=== PATIENT | male | born 1950 | race Caucasian/White ===

== ENCOUNTER 2019-07-25 08:24 | Day surgery (SDC) | payer OTHER ==
[2019-07-25 09:05] LABS: Protime INR 1.04
[2019-07-25 09:20] VITALS: BMI 27.5
--- NOTE | 2019-07-25 11:35 | RAD REPORT ---
EXAM DESCRIPTION: RAD - Myelography Lumbar - 07/25/2019 11:25 am CLINICAL HISTORY: PAIN Radiculopathy COMPARISON: Sacroiliac Jts 3/+ Views dated 03/03/2019; Lumbar Spine 3 Views dated 03/03/2019 TECHNIQUE: The procedure, risks and alternatives to the procedure were discussed with the patient in detail. After answering all questions, both oral and written consent were obtained. Time-out procedu re was performed. The patient was placed in an oblique prone position on the fluoroscopic table. The skin of the lower back was prepped and draped in the usual sterile fashion. After anesthetizing the skin and deeper sof t tissues with 1% lidocaine, a 22 gauge needle was advanced into the thecal sac at the L2-3 level. Approximately 10 cc of Isovue 200M was injected into the subarachnoid space. At the conclusion of the procedure the needle was withdrawn and a sterile bandage placed over the pun cture site. The patient was transferred to the CT gantry for CT lumbar myelogram. The patient tolerat ed the procedure well without immediate complications. Total fluoro time: 1.8 minutes Images obtained: 6 IMPRESSION: Successful fluoroscopic guided lumbar puncture for CT lumbar myelogram, which is separat brayden reported.
--- NOTE | 2019-07-25 11:51 | RAD REPORT ---
EXAM DESCRIPTION: CT - Spine Lumbar Wo Con - 07/25/2019 11:26 am CLINICAL HISTORY: Radiculopathy. MYELO COMPARISON: No comparisons TECHNIQUE: Axial noncontrast CT imaging of the lumbar spine was performed with coronal and sagittal re-formatted images according to CT myelogram protocol. Lumbar puncture for myelographic contrast inj ection is separately reported. All CT scans are performed using dose optimization technique as appropriate and may include automated exposure control or mA/KV adjustment according to patient size. FINDINGS: T12-L1: No significant findings. L1-L2: Minimal posterior disc bulge mild facet and ligamentum flavum hypertrophy. No canal or foramin al stenosis. L2-L3: Mild posterior disc bulge is present with mild facet and ligamentum flavum hypertrophy. Centra l canal is mildly narrowed to 8 mm. Mild narrowing of the anterior inferior aspects of both exit fora do suspected. L3-L4: Prominent degenerative disc disease is seen with vacuum disc degeneration. Moderate to large a symmetric bulge of disc material seen along the right paracentral and foraminal location. Findings re sult in right lateral recess stenosis and right exit foraminal narrowing. Evidence of previous right lissette-laminectomy noted. L4-L5: Prominent degenerative disc disease is seen with vacuum disc degeneration. There is significan t distortion of the thecal sac at this level caused by moderate posterior disc bulge and significant ligamentum flavum hypertrophy, greater on the left. He moderate central canal narrowing is present me asuring 8 mm, with the narrowing more significant along the left aspect of the canal. Both exit stephanie sheridan moderately narrowed. L5-S1: Disc thinning with vacuum disc degeneration and mild posterior disc bulge. Mild central canal narrowing is present. Mild narrowing of both exit foramina seen. No acute lumbar spine fracture seen. Paraspinal tissues are normal in thickness. No paraspinal absces s or hematoma seen. Posteriorly located spinal stimulator device is present however it appears to anterior the canal in t he region of the lower thoracic spine. IMPRESSION: Moderately severe lower lumbar spondylosis is present, most notable at L3-4 and L4-5 as described. There is significant right-sided lateral recess and foraminal stenosis seen at L3-4.
[2019-07-25 14:51] VITALS: BP 102/62; TEMP 98.5; O2SAT 95
== END 2019-07-25 14:30 | disposition home or self-care (01) ==
LOC: DS 08:24
PROVIDERS: ATTEND Specialist
DX: M54.5 Low back pain (principal); M79.604 Pain in right leg; M79.605 Pain in left leg
CPT/HCPCS: 36415; 85049; 85610; 85730; 72131; 62304; Q9966

== ENCOUNTER 2020-08-22 08:42 | Day surgery (SDC) | payer OTHER ==
[2020-08-22 09:17] LABS: MPV 7.1 fL (7.6-11.3)
[2020-08-22 09:50] VITALS: BMI 27.1
[2020-08-22 09:58] LABS: Protime INR 1.02
[2020-08-22 10:18] LABS: Platelet Estimate ADEQ
--- OUTSIDE RECORDS SUMMARY | 2020-08-22 14:00 | XMS REPORT | Continuity of Care Document ---
:1950 Author Organization [facility] t Address [address] [place] [address] Care Team Providers Name Role Phone Daniel Solomon MD Attending Clinician Doctor Unassigned, Name Attending Clinician Unavailable Pob, Lab Main Attending Clinician Unavailable Only, Test Attending Clinician Unavailable Daniel Solomon MD Admitting Clinician Problems This patient has no known problems. Allergies, Adverse Reactions, Alerts This patient has no known allergies or adverse reactions. Medications This patient has no known medications. Procedures This patient has no known procedures. Encounters Start End Encounter Admission Attending Care Care Encounter Source Date/Time Date/Time Type Type Clinicians Facility Department ID 2020-04-04 2020-04-05 [place] [id number] 06:19:00 16:34:00 Encounter Gato Pol[place] [id number] [place] [id number] [place] [id number] 2020-04-04 2020-04-04 Orders Doctor [place] [id number] 00:00:00 00:00:00 Only Unassigned, REY [id number] [place] [id number] [id number] 2020-04-03 2020-04-03 [facility] [id number] 07:44:00 23:59:00 Encounter Gato [place] [id number] [place] [id number] [place] [id number] 2020-04-03 2020-04-03 Older Adult Social Work Specialist Dali, [facility] [id number] 07:44:40 07:59:40 Visit Lab Main [place] [id number] [place] [id number] [facility] [id number] [address] 2020-04-02 2020-04-02 Laboratory Only, [facility] [id number] 10:25:34 10:40:34 Only Test [place] [id number] [place] [id number] [place] [id number] Results This patient has no known results.
--- NOTE | 2020-08-22 14:08 | RAD REPORT ---
EXAM DESCRIPTION: CT - Spine Lumbar Wo Con - 08/22/2020 12:09 pm CLINICAL HISTORY: M54.16 COMPARISON: Lumbar myelogram images same date, lumbar spine November 22, 2019, myelogram and postmyelog sean CT images July 2019 TECHNIQUE: Thin section 2 millimeter axial imaging of the lumbar spine was performed. Axial, angled thin section reconstruction images generated through each disc level. Sagittal and coronal reconstruc tion images were generated and reviewed. All CT scans are performed using dose optimization technique as appropriate and may include automated exposure control or mA/KV adjustment according to patient size. FINDINGS: Since the July 2019 myelogram procedure, patient has undergone lumbar surgery. Pedicle screws and rods are in place L3-L5. Degenerative left convex curvature of the lumbar spine and the l eft lateral subluxation of L3 have both been almost fully corrected with the surgical fusion. No frac ture of hardware. Neurostimulator device is in place which the patient indicated was inactive. Fusion hardware is in place bridging the right SI joint. No sacral ala fracture or acute sacral iliac findi ng. Most of the contrast pools in the dependent portion of the lower lumbar spine from L3-S2 in spite of efforts to uniformly distribute the contrast. Conus terminates at the mid L1 level. No thickening or clumping of the cauda equina identified. No CT findings to suspect arachnoiditis. T11-12 disc level: No significant finding. T12-L1 disc level: No significant finding L1-2 disc level: No significant finding. L2-3 disc level: Midline thecal sac diameter is 11 mm. Prominent bulging disc material in the left ex it foramen causing mild foraminal stenosis. This does not appear to displace or encroach significantl y on the exiting L2 nerve root. L3-4 disc level: Fused level shows graft material in the disc space. Incomplete bony union seen. Prom inent right lateral endplate spurs are present. Posterior disc bulge and endplate spurring changes ar e present. Graft material does not project into the central canal. Due to the fixation hardware spray artifact, detail is limited. No central spinal stenosis or significant foraminal encroachment. Right laminectomy posterior surgical decompression is present. L4-5 disc level: Fused level shows prominent degenerative changes to the endplates with degenerative subcortical cystic change. Graft material is present in the right-side of the central canal and appea rs well fixated to the L4 and L5 bodies. Prominent lateral endplate spurs are present. There is spurr ing in the central canal. Thecal sac diameter is 10 mm. There is mild encroachment from bony hypertro phy. Right laminectomy decompression surgical changes are noted. Posterior endplate spurring changes encroach on the thecal sac. Bilateral foraminal encroachment from bony hypertrophy of the posterior e lements and endplates. L5-S1 level: Disc desiccation and significant loss in disc height noted. This is not substantially di fferent from the 2019 myelogram. Focal protruding disc material and endplate spurring in the midline causes concave contour to the thecal sac and abuts the S1 nerve roots. Thecal sac is 12 mm in the mid line. No central spinal stenosis. No significant foraminal encroachment. IMPRESSION: Postsurgical pedicle screw and lam fixation spanning L3-L5 with graft material in the di sc spaces. No fracture hardware. The left convex degenerative curvature and left lateral L3 subluxati on have been mostly corrected. Conus terminates at L1 with no clumping or thickening of the cauda equina. No CT findings for arachno iditis. The extensive degenerative and postsurgical changes cause deformity to the contour of the thecal sac and central canal but no central spinal stenosis. Foraminal stenosis present at L4-5.
[2020-08-22 16:18] VITALS: O2SAT 98
[2020-08-22 16:21] VITALS: BP 109/57; TEMP 97.1
--- NOTE | 2020-08-23 15:46 | RAD REPORT ---
EXAM DESCRIPTION: RAD - Myelography Lumbar - 08/22/2020 12:29 pm CLINICAL HISTORY: M54.16 COMPARISON: Lumbar Spine 3 Views dated 11/22/2019 TECHNIQUE: Patient presents for lumbar myelography and postmyelogram CT imaging. Patient has previou sly undergone myelogram procedure. The myelogram procedure, risks and alternatives were discussed with the patient in detail. After answ ering all questions, both oral and written consent were obtained. Patient had no contraindicated denys rgy or medication history. Time-out procedure was performed. Preliminary imaging showed extensive postsurgical change spanning L3-L5. Fusion is present at the L3- 4 and L4-5 disc spaces. No fracture or acute lumbar finding. Neurostimulator device in place. Patient was placed in an oblique prone position on the fluoroscopic table. Skin and deeper tissues we re anesthetized with 1% lidocaine. Entry site was selected posterior to the L2 body inferior to the l eft L1 lamina. Using fluoroscopic guidance a 22 gauge spinal needle was advanced into the thecal sac. Intrathecal placement was confirmed. Approximately 10 cc of Isovue M nonionic contrast material was injected into the thecal sac. The needle was withdrawn and sterile bandage placed to the puncture sit e. Multiple AP and oblique views of the lumbar spine were obtained. Patient was then transferred to [facility] CT suite for cross-sectional imaging. Patient tolerated procedure well without complications. Following the CT study the patient was transf erred to the same day surgical area for postmyelogram monitoring. IMPRESSION: Successful fluoroscopic guided lumbar myelogram. There were no immediate complications. The myelogram findings are incorporated into the CT lumbar spine report.
== END 2020-08-22 15:13 | disposition home or self-care (01) ==
LOC: DS 08:42
PROVIDERS: ATTEND Orthopaedic Surgery
DX: M54.16 Radiculopathy, lumbar region (principal); Z98.1 Arthrodesis status; M48.061 Spinal stenosis, lumbar region without neurogenic claudication
CPT/HCPCS: 36415; 85049; 85610; 85730; 72131; 62304; Q9966

== ENCOUNTER 2020-09-29 13:59 | Emergency (ER) | payer BC, OTHER ==
--- OUTSIDE RECORDS SUMMARY | 2020-09-29 14:01 | XMS REPORT | Continuity of Care Document ---
:1950 Author Organization [facility] t Address [address] [place] [address] Care Team Providers Name Role Phone Daniel [...] Type Clinicians Facility Department ID 2020-04-04 2020-04-05 [place] [id number] 06:19:00 16:34:00 Encounter Gato Pol[place] [id number] [place] [id number] [place] [id number] 2020-04-04 2020-04-04 Orders Doctor [place]UL[place] [id number] 00:00:00 00:00:00 Only UnassignedREY [id number] [place] [id number] [id number] 2020-04-03 2020-04-03 [facility] [id number] 07:44:00 23:59:00 Encounter Gato [place] [id number] [place] [id number] [place] [id number] 2020-04-03 2020-04-03 Specialty Finishing Utility Person Dali, [facility] [id number] 07:44:40 07:59:40 Visit Lab Main [place] [id number] [place] [id number] [facility] [phone] [address] 2020-04-02 2020-04-02 Laboratory Only, [facility] [id number] 10:25:34 10:40:34 Only Test [place] [id number] [place] [id number] [place] [id number] Results This patient has no known results.
[2020-09-29 14:46] LABS: Absolute Lymphocytes (CBC) 1.8 K/uL (0.7-4.9); Basophils % 0.8 % (0-1.3); Hematocrit 37.5 % (39.6-49.0); Lymphocytes % 25.6 % (15.3-44.8); MPV 6.9 fL (7.6-11.3); RBC Red Blood Cell Count 4.29 M/uL (4.33-5.43)
[2020-09-29 14:47] LABS: Protime INR 1.1
[2020-09-29] MEDS ORDERED: MECLIZINE HCL 12.5 MG TAB ONE (14:51)
[2020-09-29] MEDS ORDERED: NA CHLORIDE 0.9% 1,000 ML ONE (14:51)
[2020-09-29] MEDS ORDERED: ONDANSETRON 4 MG/2 ML VIAL ONE (14:51)
--- NOTE | 2020-09-29 14:55 | RAD REPORT ---
EXAM DESCRIPTION: CT - Head Brain Wo Cont - 09/29/2020 2:39 pm CLINICAL HISTORY: DIZZINESS Headache, drowsiness, nausea and vomiting. COMPARISON: No comparisons TECHNIQUE: All CT scans are performed using dose optimization technique as appropriate and may inclu de automated exposure control or mA/KV adjustment according to patient size. FINDINGS: No intracranial hemorrhage, hydrocephalus or extra-axial fluid collection.Mild generalized brain atrophy noted.No areas of brain edema or evidence of midline shift. The paranasal sinuses and mastoids are clear. The calvarium is intact. IMPRESSION: No acute intracranial abnormality.
[2020-09-29 14:58] LABS: ALT/SGPT 45 U/L (12-78); AST/SGOT 33 U/L (15-37); Albumin 3.4 g/dL (3.4-5.0); Alkaline Phosphatase 63 U/L (45-117); BUN Blood Urea Nitrogen 24 mg/dL (7-18); Bicarbonate 25 mmol/L (21-32); Bilirubin Direct 0.2 mg/dL (0-0.2); Bilirubin Total 0.6 mg/dL (0.2-1.0); Glucose Level 138 mg/dL (74-106); Magnesium 2.1 mg/dL (1.8-2.4); NT PRO-BNP 68 pg/mL (<125); Protein, Total 7.4 g/dL (6.4-8.2); Sodium Level 139 mmol/L (136-145); Troponin (Emerg Dept Use Only) < 0.02 ng/mL (0.0-0.045)
--- NOTE | 2020-09-29 15:44 | RAD REPORT ---
EXAM DESCRIPTION: RAD - Chest Single View - 09/29/2020 3:25 pm CLINICAL HISTORY: dizziness Chest pain. COMPARISON: Chest Pa And Lat (2 Views) dated 01/23/2016; CHEST PA AND LAT 2 VIEW dated 05/24/2012 FINDINGS: Portable technique limits examination quality. The lungs are grossly clear. The heart is normal in size. No displaced fractures. IMPRESSION: No acute intrathoracic process suspected.
--- NOTE | 2020-09-29 16:14 | RAD REPORT ---
EXAM DESCRIPTION: CT - Head angio - 09/29/2020 4:08 pm CLINICAL HISTORY: DIZZINESS Headache, drowsiness, CVA symptomology COMPARISON: Head Brain Wo Cont dated 09/29/2020 TECHNIQUE: CT angiography of the head was performed with MIPs. All CT scans are performed using dose optimization technique as appropriate and may include automated exposure control or mA/KV adjustment according to patient size. FINDINGS: No evidence of aneurysm is detected. No flow-limiting stenosis or vascular malformation id entified. Antegrade flow is seen in the vertebral arteries. Left-sided vertebral artery is dominant. No vertebr obasilar occlusion. The visualized dural venous sinuses are patent. IMPRESSION: No significant flow abnormality is detected.
--- NOTE | 2020-09-29 16:18 | RAD REPORT ---
EXAM DESCRIPTION: CT - Neck Angio - 09/29/2020 4:08 pm CLINICAL HISTORY: dizziness Headache, drowsiness, CVA symptomology COMPARISON: No comparisons TECHNIQUE: CT angiography of the neck vessels was performed with MIPs. All CT scans are performed using dose optimization technique as appropriate and may include automated exposure control or mA/KV adjustment according to patient size. FINDINGS: A left aortic arch is identified with normal three vessel configuration of the great vesse ls. No significant flow abnormality is seen of the common carotid bilaterally. No significant stenosis is identified involving the cervical segments of both internal carotid arteri es. Normal flow is seen within both vertebral arteries. IMPRESSION: No significant flow abnormality of the neck vessels is identified.
[2020-09-29 16:51] LABS: Urine Blood NEGATIVE (NEG); Urine Glucose NEGATIVE (NEG); Urine Protein NEGATIVE (NEG); Urine Specific Gravity 1.025 (1.005-1.030); Urine pH 5.5 (5.0-7.0)
--- NOTE | 2020-09-29 17:29 | ER ---
Nurse's Notes [facility] Name: Cruz Hines Age: 70 yrs Sex: Male : 1950 Arrival Date: 09/29/2020 Time: 14:11 Bed 16 Private MD: Diagnosis: Dizziness and giddiness;Nausea and vomiting Presentation: 09/29 14:12 Chief complaint: EMS states: dizziness, nausea, and vomiting that started this morning em at 0600, also reports chronic numbness in hands but has been going to see Dr. Hernandez. Coronavirus screen: Client denies travel out of the [place] in the last 14 days. Ebola Screen: Patient negative for fever greater than or equal to 101.5 degrees Fahrenheit, and additional compatible Ebola Virus Disease symptoms Patient denies exposure to infectious person. Patient denies travel to an Ebola-affected area in the 21 days before illness onset. No symptoms or risks identified at this time. Initial Sepsis Screen: Does the patient meet any 2 criteria? No. Patient's initial sepsis screen is negative. Does the patient have a suspected source of infection? No. Patient's initial sepsis screen is negative. Risk Assessment: Do you want to hurt yourself or someone else? Patient reports no desire to harm self or others. Onset of symptoms was September 29, 2020. 14:12 Method Of Arrival: EMS: [facility] em 14:12 Acuity: JASPER 3 em Historical: - Allergies: 14:14 No Known Allergies; em - PMHx: 14:14 High Cholesterol; Hypertension; Chronic pain; em - PSHx: 14:14 Hernia repair; Knee surgery; em - Immunization history:: Adult Immunizations up to date. - Social history:: Smoking status: Patient denies any tobacco usage or history of. Screenin:15 Abuse screen: Denies threats or abuse. Nutritional screening: No deficits noted. em Tuberculosis screening: No symptoms or risk factors identified. Fall Risk None identified. Assessment: 14:14 General: Appears in no apparent distress. comfortable. Pain: Denies pain. Neuro: Level em of Consciousness is awake, alert, obeys commands, Oriented to person, place, time, situation, Appropriate for age Reports dizziness. Cardiovascular: Capillary refill < 3 seconds Patient's skin is warm and dry. Respiratory: Airway is patent Respiratory effort is even, unlabored, Respiratory pattern is regular, symmetrical. GI: Abdomen is flat, Reports nausea, Patient currently denies vomiting. Derm: Skin is intact, is healthy with good turgor, Skin is pink, warm \T\ dry. Musculoskeletal: Capillary refill < 3 seconds, Range of motion: intact in all extremities. 15:00 Reassessment: Patient appears in no apparent distress at this time. Patient and/or em family updated on plan of care and expected duration. Pain level reassessed. Patient is alert, oriented x 3, equal unlabored respirations, skin warm/dry/pink. Patient states symptoms have not improved. 16:33 Reassessment: Patient appears in no apparent distress at this time. Patient and/or em family updated on plan of care and expected duration. Pain level reassessed. Patient is alert, oriented x 3, equal unlabored respirations, skin warm/dry/pink. 17:40 Reassessment: ambulated pt, reports feeling better, reports unsteady gait is normal for em him due to his back surgery, pt ambulated with assistance, provider notified. Vital Signs: 14:12 BP 152 / 72; Pulse 72; Resp 18; Temp 97.0; Pulse Ox 100% on R/A; Weight 81.65 kg; em Height 5 ft. 11 in. (180.34 cm); Pain 0/10; 15:15 BP 116 / 72; Pulse 68; Resp 18; Pulse Ox 98% on R/A; em 16:33 BP 112 / 68; Pulse 83; Resp 18; Pulse Ox 98% on R/A; em 17:40 BP 138 / 72; Pulse 76; Resp 16; Pulse Ox 99% on R/A; em 14:12 Body Mass Index 25.10 (81.65 kg, 180.34 cm) em NIH Stroke Scale Scores: 14:30 NIHSS Score: 0 cp ED Course: 14:11 Patient arrived in ED. em 14:13 Triage completed. em 14:14 Jignesh Gibbs NP is PHCP. pm1 14:14 Agustin Salazar MD is Attending Physician. pm1 14:14 Arm band placed on. em 14:14 Patient has correct armband on for positive identification. Call light in reach. Side em rails up X2. Pulse ox on. NIBP on. 14:16 Jose Wright, RN is Primary Nurse. em 14:17 PHCP role handed off by Jignesh Gibbs, PAPITO cp 14:17 Francisco Javier Duenas PA is PHCP. cp 14:30 Initial lab(s) drawn, by me, sent to lab. Inserted saline lock: 20 gauge in left em antecubital area, using aseptic technique. Blood collected. 14:39 CT Head Brain wo Cont In Process Unspecified. EDMS 15:15 EKG done, by ED staff, reviewed by Francisco Javier ALCANTAR. Patient maintains SpO2 saturation jp3 greater than 95% on room air. 15:17 traffic rate computer on. jp3 15:25 XRAY Chest (1 view) In Process Unspecified. EDMS 16:08 CT Head Angio In Process Unspecified. EDMS 16:08 CT Neck Angio In Process Unspecified. EDMS 17:28 Oscar Miller MD is Referral Physician. cp 18:19 IV discontinued, intact, bleeding controlled, No redness/swelling at site. Pressure em dressing applied. Administered Medications: 14:55 Drug: Zofran (Ondansetron) 4 mg Route: IVP; Site: left antecubital; em 16:30 Follow up: Response: No adverse reaction; Marked relief of symptoms; Nausea is decreasedem 15:12 Drug: NS 0.9% 500 ml Route: IV; Rate: 500 ml/hr; Site: left antecubital; em 17:30 Follow up: IV Status: Completed infusion; IV Intake: 500ml em 15:21 Drug: Meclizine 25 mg Route: PO; em 16:30 Follow up: Response: No adverse reaction; Marked relief of symptoms em Intake: 17:30 IV: 500ml; Total: 500ml. em Outcome: 17:29 Discharge ordered by . cp 18:19 Discharged to home via wheelchair, with family. em 18:19 Condition: improved 18:19 Discharge instructions given to patient, Instructed on discharge instructions, follow up and referral plans. medication usage, Demonstrated understanding of instructions, follow-up care, medications, Prescriptions given X 2. 18:23 Patient left the ED. em NIH Stroke Scale - NIH Stroke Score Date: 09/29/2020 Time: 14:30 Total Score = 0 1a. Level of Consciousness (LOC) - 0(Alert) 1b. Level of Consciousness (LOC) (Year \T\ Age) - 0(Both) 1c. LOC Commands (Open \T\ Closes Eyes/Sketch Artist) - 0(Both) 2. Best Gaze (Lateral Gaze Paresis) - 0(Normal) 3. Visual Field Loss - 0(No visual loss) 4. Facial Palsy - 0(Normal) 5a. Left Arm: Motor (10-second hold) - 0(No drift) 5b. Right Arm: Motor (10-second hold) - 0(No drift) 6a. Left Leg: Motor (5-second hold - always test supine) - 0(No drift) 6b. Right Leg: Motor (5-second hold - always test supine) - 0(No drift) 7. Limb Ataxia (finger/nose \T\ heel/moy - test with eyes open) - 0(Absent) 8. Sensory Loss (pinprick arms/legs/face) - 0(Normal) 9. Best Language: Aphasia (description/naming/reading) - 0(No aphasia) 10. Dysarthria (speech clarity - read or repeat words) - 0(Normal) 11. Extinction and Inattention (visual/tactile/auditory/spatial/personal) - 0(No abnormality) Initials: cp Signatures: Dispatcher [employer] Jose Nielson RN RN Francisco Javier Rivero PA PA cp Marinas, Patrick, PAPITO [employer] pm1 Nimesh Garcia jp3
--- NOTE | 2020-09-29 17:29 | EDPHYS ---
Physician Documentation [facility] Name: Cruz Hines Age: 70 yrs Sex: Male : 1950 Arrival Date: 09/29/2020 Time: 14:11 Bed 16 Private MD: ED Physician Agustin Salazar HPI: 09/29 14:20 This 70 yrs old Male presents to ER via EMS with complaints of Dizziness, cp Nausea/Vomiting. 14:20 The patient presents with dizziness, feeling off balance. Onset: The symptoms/episode cp began/occurred this morning, upon awakening. 14:20 Associated signs and symptoms: Pertinent positives: nausea, vomiting, Pertinent cp negatives: abdominal pain, chest pain, confusion, focal weakness, head injury, headache, numbness, palpitations, shortness of breath, syncope. Severity of symptoms: in the emergency department the symptoms have improved mildly. Patient's baseline: Neuro: alert and fully oriented, Motor: no deficits, Ambulation: walks without assistance, Speech: normal. Historical: - Allergies: 14:14 No Known Allergies; em - PMHx: 14:14 High Cholesterol; Hypertension; Chronic pain; em - PSHx: 14:14 Hernia repair; Knee surgery; em - Immunization history:: Adult Immunizations up to date. - Social history:: Smoking status: Patient denies any tobacco usage or history of. ROS: 14:25 Constitutional: Positive for poor PO intake, Negative for body aches, chills, fever. cp 14:25 Eyes: Negative for injury, pain, redness, and discharge. cp 14:25 Cardiovascular: Negative for chest pain, edema, palpitations. 14:25 Respiratory: Negative for cough, shortness of breath, wheezing. 14:25 Abdomen/GI: Positive for nausea, vomiting, Negative for abdominal pain, diarrhea, constipation, hematemesis, black/tarry stool, rectal bleeding. 14:25 Back: Negative for pain at rest, pain with movement. 14:25 Skin: Negative for rash. 14:25 Neuro: Positive for dizziness, Negative for altered mental status, headache, loss of consciousness, speech changes, syncope, weakness. 14:25 All other systems are negative. Exam: 14:30 Constitutional: The patient appears in no acute distress, alert, awake, cp non-diaphoretic, non-toxic, well developed, well nourished. 14:30 Head/Face: Normocephalic, atraumatic. cp 14:30 Eyes: Periorbital structures: appear normal, Pupils: equal, round, and reactive to light and accomodation, Extraocular movements: intact throughout, Conjunctiva: normal, no exudate, no injection, Sclera: no appreciated abnormality, Lids and lashes: appear normal, bilaterally. 14:30 ENT: External ear(s): are unremarkable, Ear canal(s): are normal, clear, TM's: bulging, is not appreciated, bilaterally, dullness, bilaterally, erythema, is not appreciated, bilaterally, Nose: is normal, Mouth: Lips: moist, Oral mucosa: pink and intact, moist, Posterior pharynx: Airway: no evidence of obstruction, patent, swelling, is not appreciated, erythema, is not appreciated. 14:30 Neck: ROM/movement: is normal, is supple, without pain, no range of motions limitations, no meningismus. 14:30 Chest/axilla: Inspection: normal, Palpation: is normal, no crepitus, no tenderness. 14:30 Cardiovascular: Rate: normal, Rhythm: regular, Heart sounds: murmur, not appreciated, Edema: is not appreciated, JVD: is not appreciated. 14:30 Respiratory: the patient does not display signs of respiratory distress, Respirations: normal, no use of accessory muscles, no retractions, labored breathing, is not present, Breath sounds: are clear throughout, no decreased breath sounds, no stridor, no wheezing. 14:30 Abdomen/GI: Inspection: abdomen appears normal, Palpation: abdomen is soft and non-tender, in all quadrants, voluntary guarding, is not appreciated, involuntary guarding, is not appreciated. 14:30 Back: pain, is absent, ROM is normal. 14:30 Skin: cellulitis, is not appreciated, no rash present. 14:30 Neuro: Orientation: to person, place \T\ time. Mentation: is normal, Cerebellar function: Romberg testing is negative, normal finger to nose testing, heel to moy testing is normal, Motor: is normal, Sensation: is normal. 15:21 ECG was reviewed by the Attending Physician. cp Vital Signs: 14:12 BP 152 / 72; Pulse 72; Resp 18; Temp 97.0; Pulse Ox 100% on R/A; Weight 81.65 kg; em Height 5 ft. 11 in. (180.34 cm); Pain 0/10; 15:15 BP 116 / 72; Pulse 68; Resp 18; Pulse Ox 98% on R/A; em 16:33 BP 112 / 68; Pulse 83; Resp 18; Pulse Ox 98% on R/A; em 17:40 BP 138 / 72; Pulse 76; Resp 16; Pulse Ox 99% on R/A; em 14:12 Body Mass Index 25.10 (81.65 kg, 180.34 cm) em NIH Stroke Scale Scores: 14:30 NIHSS Score: 0 cp MDM: 14:30 Differential diagnosis: cardiac arrhythmia, CVA, GI bleed, head injury, hypovolemia, cp idiopathic dizziness, sepsis, TIA, vertigo. 15:12 Patient medically screened. cp 17:28 Data reviewed: vital signs, nurses notes, lab test result(s), EKG, radiologic studies, cp CT scan, plain films, I have discussed the patient's presentation/case with the attending Emergency Department Physician; and as a result, I will discharge patient. 17:28 Test interpretation: by ED physician or midlevel provider: ECG, plain radiologic cp studies. Counseling: I had a detailed discussion with the patient and/or guardian regarding: the historical points, exam findings, and any diagnostic results supporting the discharge/admit diagnosis, lab results, radiology results, the need for outpatient follow up, a neurologist, to return to the emergency department if symptoms worsen or persist or if there are any questions or concerns that arise at home. Response to treatment: the patient's symptoms have markedly improved after treatment, and as a result, I will discharge patient. ED course: VSS. Nausea and dizziness markedly improved. Will discharge to home for continued monitoring. 09/29 14:18 Order name: Basic Metabolic Panel; Complete Time: 15:12 cp 09/29 15:12 Interpretation: Normal except: CL 108; GLUC 138; BUN 24; GFR 62. cp 09/29 14:18 Order name: CBC with Diff; Complete Time: 15:12 cp 09/29 17:05 Interpretation: Normal except: RBC 4.29; HGB 12.2; HCT 37.5; PLT 420; MPV 6.9. cp 09/29 14:18 Order name: LFT's; Complete Time: 15:12 cp 09/29 17:05 Interpretation: Normal except: GLOB 4.0; A/G 0.9. cp 09/29 14:18 Order name: Magnesium; Complete Time: 15:12 cp 09/29 14:18 Order name: NT PRO-BNP; Complete Time: 15:12 cp 09/29 14:18 Order name: PT-INR; Complete Time: 15:12 cp 09/29 14:18 Order name: Troponin (emerg Dept Use Only); Complete Time: 15:12 cp 09/29 14:18 Order name: XRAY Chest (1 view); Complete Time: 16:20 cp 09/29 17:06 Interpretation: Report reviewed. 09/29 14:19 Order name: CT Head Brain wo Cont; Complete Time: 15:12 cp 09/29 15:14 Order name: CT Head Angio; Complete Time: 16:20 cp 09/29 15:14 Order name: CT Neck Angio; Complete Time: 16:20 cp 09/29 16:27 Order name: Urine Dipstick--Ancillary (enter results); Complete Time: 17:05 eb 09/29 17:05 Interpretation: Normal except: UKET 1+. cp 09/29 14:18 Order name: EKG; Complete Time: 14:19 cp 09/29 14:18 Order name: Cardiac monitoring; Complete Time: 14:32 cp 09/29 14:18 Order name: EKG - Nurse/Tech; Complete Time: 15:17 cp 09/29 14:18 Order name: IV Saline Lock; Complete Time: 14:33 cp 09/29 14:18 Order name: Labs collected and sent; Complete Time: 14:33 cp 09/29 14:18 Order name: O2 Per Protocol; Complete Time: 14:24 cp 09/29 14:18 Order name: O2 Sat Monitoring; Complete Time: 14:24 cp 09/29 15:14 Order name: Urine Dipstick-Ancillary (obtain specimen); Complete Time: 16:09 cp 09/29 16:21 Order name: Misc. Order: ambulate patient; Complete Time: 18:18 cp EC:21 Rate is 64 beats/min. Rhythm is regular. [place] interval is normal. QRS interval is normal. cp QT interval is normal. T waves are Inverted in lead aVR. Interpreted by me. Reviewed by me. Administered Medications: 14:55 Drug: Zofran (Ondansetron) 4 mg Route: IVP; Site: left antecubital; em 16:30 Follow up: Response: No adverse reaction; Marked relief of symptoms; Nausea is decreasedem 15:12 Drug: NS 0.9% 500 ml Route: IV; Rate: 500 ml/hr; Site: left antecubital; em 17:30 Follow up: IV Status: Completed infusion; IV Intake: 500ml em 15:21 Drug: Meclizine 25 mg Route: PO; em 16:30 Follow up: Response: No adverse reaction; Marked relief of symptoms em Disposition: 09/30 14:04 Co-signature as Attending Physician, Agustin Salazar MD I agree with the assessment and kdr plan of care. Disposition: 09/29/20 17:29 Discharged to Home. Impression: Dizziness and giddiness, Nausea and vomiting. - Condition is Stable. - Discharge Instructions: Dizziness, Nausea and Vomiting, Adult. - Prescriptions for Meclizine 25 mg Oral Tablet - take 1 tablet by ORAL route every 8 hours As needed; 30 tablet. Zofran 4 mg Oral Tablet - take 1 tablet by ORAL route every 12 hours As needed; 20 tablet. - Medication Reconciliation Form, Thank You Letter, Antibiotic Education, Prescription Opioid Use form. - Follow up: Oscar Miller MD; When: 2 - 3 days; Reason: Recheck today's complaints. - Problem is new. - Symptoms have improved. NIH Stroke Scale - NIH Stroke Score Date: 09/29/2020 Time: 14:30 Total Score = 0 1a. Level of Consciousness (LOC) - 0(Alert) 1b. Level of Consciousness (LOC) (Year \T\ Age) - 0(Both) 1c. LOC Commands (Open \T\ Closes Eyes/Muffle Operator) - 0(Both) 2. Best Gaze (Lateral Gaze Paresis) - 0(Normal) 3. Visual Field Loss - 0(No visual loss) 4. Facial Palsy - 0(Normal) 5a. Left Arm: Motor (10-second hold) - 0(No drift) 5b. Right Arm: Motor (10-second hold) - 0(No drift) 6a. Left Leg: Motor (5-second hold - always test supine) - 0(No drift) 6b. Right Leg: Motor (5-second hold - always test supine) - 0(No drift) 7. Limb Ataxia (finger/nose \T\ heel/moy - test with eyes open) - 0(Absent) 8. Sensory Loss (pinprick arms/legs/face) - 0(Normal) 9. Best Language: Aphasia (description/naming/reading) - 0(No aphasia) 10. Dysarthria (speech clarity - read or repeat words) - 0(Normal) 11. Extinction and Inattention (visual/tactile/auditory/spatial/personal) - 0(No abnormality) Initials: cp Signatures: Dispatcher [employer] EDMS Agustin Salazar MD MD kdr Jose Wright RN RN em Francisco Javier Duenas PA PA cp Corrections: (The following items were deleted from the chart) 09/29 18:23 17:29 09/29/2020 17:29 Discharged to Home. Impression: Dizziness and giddiness; em Nausea and vomiting. Condition is Stable. Forms are Medication Reconciliation Form, Thank You Letter, Antibiotic Education, Prescription Opioid Use. Follow up: Oscar Miller; When: 2 - 3 days; Reason: Recheck today's complaints. Problem is new. Symptoms have improved. cp
[2020-09-29 18:33] VITALS: TEMP 97
[2020-09-29 18:37] VITALS: BP 138/72; O2SAT 99
== END 2020-09-29 18:23 | disposition home or self-care (01) ==
LOC: ER 13:59
DX: R11.2 Nausea with vomiting, unspecified (principal); I10 Essential (primary) hypertension
CPT/HCPCS: 96361; 93005; 85025; 80048; 36415; 83735; 85610; 80076; 81003; 84484; 83880; 70450; 70496; 70498; 71045; 96374; 99285; Q9967; J7030; J2405

== ENCOUNTER 2023-12-31 15:20 | Emergency (ER) | payer OTHER ==
--- NOTE | 2023-12-31 16:38 | RAD REPORT ---
EXAM DESCRIPTION: CT - Head Brain Wo Cont - 12/31/2023 4:18 pm CLINICAL HISTORY: Weakness/dizziness COMPARISON: 2022 TECHNIQUE: Computed axial tomography of the head was obtained. IV contrast was not requested. All CT scans are performed using dose optimization technique as appropriate and may include automated exposure control or mA/KV adjustment according to patient size. FINDINGS: An intracranial bleed is not seen The ventricles are normal in caliber No extra-axial fluid collection is noted. No significant hyperdensity within the brain. Mild cerebral atrophy. Mild left maxillary sinusitis IMPRESSION: No acute intracranial abnormality is seen If patient's symptoms persist MRI of the brain would be recommended
[2023-12-31] MEDS ORDERED: NA CHLORIDE 0.9% 1,000 ML ONE ×2 (16:49→18:18)
[2023-12-31 16:59] LABS: Absolute Basophils 0.1 K/uL (0-0.5); Absolute Eosinophils 0.1 K/uL (0-0.5); Absolute Lymphocytes (CBC) 2.4 K/uL (0.7-4.9); Absolute Monocytes 0.4 K/uL (0.1-1.3); Absolute Neutrophil 3.6 K/uL (1.8-8.0); Basophils % 1.1 % (0-1.3); Eosinophils % 1.1 % (0-4.4); Hematocrit 40.9 % (39.6-49.0); Hemoglobin 13.7 g/dL (13.6-17.9); Lymphocytes % 36.5 % (15.3-44.8); MCH 30.1 pg (27.0-35.0); MCHC 33.5 g/dL (32.0-36.0); MCV 89.9 fL (80-100); MPV 7.1 fL (7.6-11.3); Monocytes % 6.7 % (3.3-12.3); Neutrophils % 54.6 % (41.7-73.7); Platelets 278 thou/uL (152-406); RBC Red Blood Cell Count 4.55 M/uL (4.33-5.43); Red Cell Distribution Width 12.1 % (12.1-15.2)
[2023-12-31 17:04] LABS: PT Prothrombin Time 12.2 SECONDS (9.5-12.5); Protime INR 1.11
[2023-12-31 17:05] LABS: INFLUENZA A NAA NEGATIVE (NEGATIVE); RESPIRATORY SYNCYTIAL VIR NAA NEGATIVE (NEGATIVE); SARS-COV-2 RT PCR NEGATIVE (NEGATIVE)
--- NOTE | 2023-12-31 17:15 | RAD REPORT ---
EXAM DESCRIPTION: Angel Single View12/31/2023 4:24 pm CLINICAL HISTORY: Chest pain COMPARISON: October 2023 FINDINGS: The lungs appear clear of acute infiltrate. The heart is normal size. Neurostimulator dev ice in place IMPRESSION: No acute abnormalities displayed
[2023-12-31 17:17] LABS: Albumin 3.3 g/dL (3.4-5.0); Albumin/Globulin Ratio 0.9 (1.1-1.8); Anion Gap 7.6 mEq/L (5.0-15.0); Bilirubin Direct 0.2 mg/dL (0-0.2); Bilirubin Indirect, Calculated 0.4 mg/dL (0.2-0.8); Bilirubin Total 0.6 mg/dL (0.2-1.0); Globulin 3.6 g/dL (2.3-3.5); Magnesium 1.9 mg/dL (1.6-2.4); Potassium 3.6 mEq/L (3.5-5.1); Protein, Total 6.9 g/dL (6.4-8.2)
[2023-12-31 18:10] LABS: Specific Gravity 1.021 (1.005-1.030); Sqamous Epithelial None Seen /HPF (None Seen); Urine Bacteria None Seen /HPF (<20); Urine Bilirubin NEGATIVE (Negative); Urine Blood Negative (Negative); Urine Clarity Clear (Clear); Urine Color Yellow (Yellow); Urine Culture Reflex Order NOT NEEDED; Urine Glucose NEGATIVE (Negative); Urine Ketones 2+ (Negative); Urine Microscopic Reflex YN ORDER UMIC; Urine Mucus Slight /HPF (None Seen); Urine Nitrite NEGATIVE (Negative); Urine Protein TRACE (Negative); Urine RBC <5 /HPF (None Seen); Urine Urobilinogen Normal (Normal); Urine WBC None Seen /HPF (<5); Urine pH 8.5 (5.0-7.0)
[2023-12-31 18:15] LABS: Barbiturates NEGATIVE (NEGATIVE); Benzodiazepines NEGATIVE (NEGATIVE); Cocaine NEGATIVE (NEGATIVE); METHAMPHETAM NEGATIVE (NEGATIVE); Methadone NEGATIVE (NEGATIVE); Opiates NEGATIVE (NEGATIVE); Phencyclidine NEGATIVE (NEGATIVE); THC Cannibis NEGATIVE (NEGATIVE)
--- NOTE | 2023-12-31 19:00 | ER ---
Nurse's Notes [facility] Name: Cruz Hines Age: 73 yrs Sex: Male : 1950 Arrival Date: 12/31/2023 Time: 15:20 Bed 3 Private MD: Diagnosis: opioid overuse Presentation: 12/30 15:41 Chief complaint: EMS states: toned out to patient home for dizziness and weakness X 10 ld1 days. N/V since this morning. Coronavirus screen: At this time, the client does not indicate any symptoms associated with coronavirus-19. Ebola Screen: No symptoms or risks identified at this time. Initial Sepsis Screen: Does the patient meet any 2 criteria? No. Patient's initial sepsis screen is negative. Does the patient have a suspected source of infection? No. Patient's initial sepsis screen is negative. Risk Assessment: Do you want to hurt yourself or someone else? Patient reports no desire to harm self or others. Onset of symptoms was December 31, 2023. 15:41 Method Of Arrival: EMS: [facility] ld1 15:41 Acuity: JASPER 3 ld1 Triage Assessment: 15:33 General: Appears in no apparent distress. comfortable, Behavior is anxious, crying, ld1 fussy. Pain: Denies pain. EENT: No signs and/or symptoms were reported regarding the EENT system. Neuro: Level of Consciousness is awake, alert, obeys commands, Oriented to person, place, time, situation, Reports dizziness, weakness. Cardiovascular: Capillary refill < 3 seconds Patient's skin is warm and dry. Rhythm is sinus rhythm. Respiratory: Airway is patent Respiratory effort is even, unlabored. GI: Abdomen is flat, non-distended, Reports nausea, vomiting. : No signs and/or symptoms were reported regarding the genitourinary system. Derm: No signs and/or symptoms reported regarding the dermatologic system. Musculoskeletal: No signs and/or symptoms reported regarding the musculoskeletal system. Historical: - Allergies: 15:33 No Known Allergies; ld1 - Home Meds: 15:33 atorvastatin 20 mg oral tablet 1 tab daily [Active]; lisinopril 20 mg Oral tablet daily ld1 [Active]; diclofenac sodium (bulk) miscellaneous [Active]; hydrocodone-acetaminophen 10-325 mg Oral tablet 1 tab every 6 hours [Active]; Oxycodone-Acetaminophen Oral every 6 hours [Active]; duloxetine 60 mg oral Capsule, Delayed Release Sprinkle 1 cap daily [Active]; gabapentin 800 mg oral tablet 1 tab daily [Active]; methocarbamol 750 mg Oral tablet 1 tab every 8 hours [Active]; Dilaudid pain pump [Active]; - PMHx: 15:33 Chronic pain; High Cholesterol; Hypertension; Hypercholesterolemia; ld1 - Immunization history:: Adult Immunizations up to date. - Infectious Disease History:: Denies. - Social history:: Smoking status: Patient denies any tobacco usage or history of. Screenin:42 [facility] ED Fall Risk Assessment (Adult) History of falling in the last 3 months, ld1 including since admission No falls in past 3 months (0 pts). Abuse screen: Denies injuries from another. Abuse screen: Denies threats or abuse. Nutritional screening: No deficits noted. Tuberculosis screening: No symptoms or risk factors identified. Assessment: 15:42 Reassessment: See triage assessment. ld1 15:42 GI: Abdomen is round non-distended, Reports nausea, vomiting. ld1 19:05 Reassessment: Patient appears in no apparent distress at this time. Patient and/or bm8 family updated on plan of care and expected duration. Pain level reassessed. Patient is alert, oriented x 3, equal unlabored respirations, skin warm/dry/pink. Patient denies pain at this time. Patient states feeling better. Patient states symptoms have improved. General: Appears in no apparent distress. comfortable, Behavior is calm, cooperative, appropriate for age. Pain: Denies pain. Neuro: No deficits noted. Level of Consciousness is awake, alert, obeys commands, Oriented to person, place, time, situation, Appropriate for age. Cardiovascular: No deficits noted. Capillary refill < 3 seconds Patient's skin is warm and dry. Respiratory: No deficits noted. Airway is patent Respiratory effort is even, unlabored, Respiratory pattern is regular, symmetrical. GI: No deficits noted. No signs and/or symptoms were reported involving the gastrointestinal system. : No deficits noted. No signs and/or symptoms were reported regarding the genitourinary system. EENT: No deficits noted. No signs and/or symptoms were reported regarding the EENT system. Derm: No signs and/or symptoms reported regarding the dermatologic system. 19:14 Reassessment: Pt is ready and discharged awaiting ride from home. bm8 Vital Signs: 15:33 BP 157 / 74; Pulse 73; Resp 18; Temp 97.8(TE); Pulse Ox 100% on R/A; Weight 83.91 kg; ld1 Height 5 ft. 10 in. ; Pain 0/10; 16:51 BP 157 / 74; Pulse 58; Resp 18; Pulse Ox 100% on R/A; ld1 17:14 BP 149 / 79; Pulse 69; Resp 16; Pulse Ox 97% ; ko1 18:44 BP 151 / 77; Pulse 61; Resp 14; Pulse Ox 100% ; ko1 19:05 BP 161 / 88; Pulse 63; Resp 20; Temp 97.8; Pulse Ox 100% ; Pain 0/10; bm8 15:33 Body Mass Index 26.54 (83.91 kg, 177.8 cm) ld1 15:33 Pain Scale: Adult ld1 19:05 Pain Scale: Adult bm8 Andry Coma Score: 19:05 Eye Response: spontaneous(4). Motor Response: obeys commands(6). Verbal Response: bm8 oriented(5). Total: 15. ED Course: 15:28 Patient arrived in ED. ld1 15:28 Kavita Nuñez PA-C is PHCP. sb4 15:28 Barry Carpenter MD is Attending Physician. sb4 15:33 Arm band placed on right wrist. ld1 15:42 Triage completed. ld1 15:42 Patient has correct armband on for positive identification. Placed in gown. Bed in low ld1 position. Call light in reach. Side rails up X2. surveillance monitor on. Pulse ox on. NIBP on. Door closed. Noise minimized. Warm blanket given. 15:42 No provider procedures requiring assistance completed. ld1 16:20 CT Head Brain wo Cont In Process Unspecified. EDMS 16:22 COVID-19/FLU A+B/RSV Sent. ld1 16:26 Chest Single View XRAY In Process Unspecified. EDMS 16:30 Warm blanket given. ko1 16:30 Assisted with urinal. ko1 16:45 COVID-19/FLU A+B/RSV Sent. ld1 16:45 Inserted saline lock: 20 gauge in left antecubital area, using aseptic technique. Blood ko1 collected. 16:47 Kalyani Montoya, RN is Primary Nurse. ko1 16:47 Basic Metabolic Panel Sent. ko1 16:47 CBC with Diff Sent. ko1 16:47 Hepatic Function Sent. ko1 16:47 Magnesium Sent. ko1 16:47 Ptt, Activated Sent. ko1 16:47 Protime (+inr) Sent. ko1 16:47 Troponin High Sensitivity Sent. ko1 16:50 Initial lab(s) drawn, by me, sent to lab. EKG done, by ED staff, reviewed by Kavita Nuñez PA-C. 17:14 Provided Education on: na. Warm blanket given. ko1 17:58 UDS Sent. ko1 17:58 Urinalysis w/ reflexes Sent. ko1 18:35 Warm blanket given. ko1 18:43 PO fluids given. ko1 19:05 Report received from chica ballesteros. surveillance monitor on. Pulse ox on. NIBP on. Door closed. bm8 Noise minimized. Lights dimmed. Warm blanket given. Verbal reassurance given. 19:05 IV is patent, with fluids infusing freely, with good blood return. bm8 19:10 IV discontinued, intact, bleeding controlled, No redness/swelling at site. Pressure bm8 dressing applied. 19:14 Awaiting transportation. bm8 Administered Medications: 16:48 Drug: NS 0.9% IV 1000 ml IV at 1 bolus Per protocol; 1000 mL bolus Route: IV; Rate: 1 ko1 bolus; Site: left antecubital; 19:10 Follow up: Response: No adverse reaction; IV Status: Completed infusion; IV Intake: bm8 1000ml 18:25 Drug: NS 0.9% IV 1000 ml IV at 1 bolus Per protocol; 1000 mL bolus Route: IV; Rate: 1 ko1 bolus; Site: left antecubital; 19:09 Follow up: Response: No adverse reaction; IV Status: Completed infusion; IV Intake: bm8 1000ml Medication: 17:14 VIS not applicable for this client. ko1 Intake: 19:09 IV: 1000ml; Total: 1000ml. bm8 19:10 IV: 1000ml; Total: 2000ml. bm8 Outcome: 19:00 Discharge ordered by . sb4 19:05 Discharged to home ambulatory, with family, bm8 19:05 Condition: stable 19:05 Discharge instructions given to patient, family, Instructed on discharge instructions, follow up and referral plans. medication usage, safety practices, Demonstrated understanding of instructions, follow-up care, medications, 19:29 Patient left the ED. ha1 Signatures: Dispatcher [employer] EDMS Carrol Quiros, RN RN ld1 Elisha Rm RN RN ha1 Kalyani Montoya RN RN [id number] Kavita Nuñez, PAAlejandrina PA-Saniya sb4 Elías Kang RN RN bm8
--- NOTE | 2023-12-31 19:01 | EDPHYS ---
Physician Documentation [facility] Name: Cruz Hines Age: 73 yrs Sex: Male : 1950 Arrival Date: 12/31/2023 Time: 15:20 Bed 3 Private MD: ED Physician Barry Carpenter HPI: 12/30 15:44 This 73 yrs old Male presents to ER via EMS with complaints of Dizziness, General sb4 Weakness, Nausea/Vomiting. 15:44 patient reports feeling generally unwell- weak and dizzy x 10 days. today, he became sb4 weaker and started experiencing nausea/vomiting. he does have chronic pain in which he has a dilaudid DESIGNATED BROKER and takes oxycodone and hydrocodone for pain PRN. denies any changes in those dosages recently. denies any chest pain, shortness of breath, fever, cough, chills. Historical: - Allergies: 15:33 No Known Allergies; ld1 - Home Meds: 15:33 atorvastatin 20 mg oral tablet 1 tab daily [Active]; lisinopril 20 mg Oral tablet daily ld1 [Active]; diclofenac sodium (bulk) miscellaneous [Active]; hydrocodone-acetaminophen 10-325 mg Oral tablet 1 tab every 6 hours [Active]; Oxycodone-Acetaminophen Oral every 6 hours [Active]; duloxetine 60 mg oral Capsule, Delayed Release Sprinkle 1 cap daily [Active]; gabapentin 800 mg oral tablet 1 tab daily [Active]; methocarbamol 750 mg Oral tablet 1 tab every 8 hours [Active]; Dilaudid pain pump [Active]; - PMHx: 15:33 Chronic pain; High Cholesterol; Hypertension; Hypercholesterolemia; ld1 - Immunization history:: Adult Immunizations up to date. - Infectious Disease History:: Denies. - Social history:: Smoking status: Patient denies any tobacco usage or history of. ROS: 15:45 Cardiovascular: Negative for chest pain, palpitations, and edema, sb4 15:45 Constitutional: Positive for fatigue, 15:45 Abdomen/GI: Positive for nausea and vomiting, 15:45 Neuro: Positive for dizziness, weakness, 15:45 All other systems are negative, Exam: 15:45 Head/Face: Normocephalic, atraumatic. Eyes: Extra-ocular motions intact. Periorbital sb4 areas with no swelling, redness, or edema. ENT: Mucous membranes moist. Cardiovascular: Regular rate and rhythm with a normal S1 and S2. Respiratory: Lungs have equal breath sounds bilaterally, clear to auscultation and percussion. No rales, rhonchi or wheezes noted. No increased work of breathing, no retractions or nasal flaring. Abdomen/GI: Soft, non-tender, no distension. Skin: Warm, dry with normal turgor. Normal color with no rashes, no lesions, and no evidence of cellulitis. MS/ Extremity: Pulses equal, no cyanosis. Neurovascular intact. Full, normal range of motion. 15:45 Constitutional: The patient appears alert, awake, obviously ill, Vital Signs: 15:33 BP 157 / 74; Pulse 73; Resp 18; Temp 97.8(TE); Pulse Ox 100% on R/A; Weight 83.91 kg; ld1 Height 5 ft. 10 in. ; Pain 0/10; 16:51 BP 157 / 74; Pulse 58; Resp 18; Pulse Ox 100% on R/A; ld1 17:14 BP 149 / 79; Pulse 69; Resp 16; Pulse Ox 97% ; ko1 18:44 BP 151 / 77; Pulse 61; Resp 14; Pulse Ox 100% ; ko1 19:05 BP 161 / 88; Pulse 63; Resp 20; Temp 97.8; Pulse Ox 100% ; Pain 0/10; bm8 15:33 Body Mass Index 26.54 (83.91 kg, 177.8 cm) ld1 15:33 Pain Scale: Adult ld1 19:05 Pain Scale: Adult bm8 Andry Coma Score: 19:05 Eye Response: spontaneous(4). Motor Response: obeys commands(6). Verbal Response: bm8 oriented(5). Total: 15. MDM: 15:28 Patient medically screened. sb4 18:59 Data reviewed: vital signs, nurses notes, lab test result(s), EKG, radiologic studies, sb4 and as a result, I will discharge patient. Consideration of Admission/Observation Escalation of care including admission/observation considered. Counseling: I had a detailed discussion with the patient and/or guardian regarding the historical points, exam findings, and any diagnostic results supporting the discharge/admit diagnosis, the presence of at least one elevated blood pressure reading (>120/80) during this emergency department visit, lab results, radiology results, to return to the emergency department if symptoms worsen or persist or if there are any questions or concerns that arise at home. 12/30 15:42 Order name: Basic Metabolic Panel; Complete Time: 17:18 sb4 12/30 15:42 Order name: CBC with Diff; Complete Time: 17:52 sb4 12/30 15:42 Order name: Hepatic Function; Complete Time: 17:18 sb4 12/30 15:42 Order name: Magnesium; Complete Time: 17:18 sb4 12/30 15:42 Order name: Protime (+inr); Complete Time: 17:04 sb4 12/30 15:42 Order name: Ptt, Activated; Complete Time: 17:04 sb4 12/30 15:42 Order name: Troponin High Sensitivity; Complete Time: 17:18 sb4 12/30 15:42 Order name: UDS; Complete Time: 18:15 sb4 12/30 15:42 Order name: Urinalysis w/ reflexes; Complete Time: 18:14 sb4 12/30 15:45 Order name: COVID-19/FLU A+B/RSV; Complete Time: 17:06 sb4 12/30 15:42 Order name: CT Head Brain wo Cont; Complete Time: 16:40 sb4 12/30 15:42 Order name: Chest Single View XRAY; Complete Time: 17:18 sb4 12/30 15:42 Order name: EKG; Complete Time: 15:43 sb4 12/30 15:42 Order name: Cardiac monitoring; Complete Time: 16:07 sb4 12/30 15:42 Order name: EKG - Nurse/Tech; Complete Time: 16:51 sb4 12/30 15:42 Order name: IV Saline Lock; Complete Time: 16:48 sb4 12/30 15:42 Order name: Labs collected and sent; Complete Time: 16:48 sb4 12/30 15:42 Order name: O2 Per Protocol; Complete Time: 16:07 sb4 12/30 15:42 Order name: O2 Sat Monitoring; Complete Time: 16:07 sb4 12/30 18:15 Order name: Misc. Order: po challenge and ambulate; Complete Time: 19:09 sb4 EC:58 Rate is 58 beats/min. Rhythm is regular, Sinus bradycardia with 1st degree heart block. sb4 NC interval is prolonged at 224 msec. QRS interval is normal at 86 msec. QT interval is normal at 424 msec. No Q waves. T waves are Normal. No ST changes noted. Clinical impression: Abnormal EKG without significant change. Interpreted by me. Reviewed by me. Administered Medications: 16:48 Drug: NS 0.9% IV 1000 ml IV at 1 bolus Per protocol; 1000 mL bolus Route: IV; Rate: 1 ko1 bolus; Site: left antecubital; 19:10 Follow up: Response: No adverse reaction; IV Status: Completed infusion; IV Intake: bm8 1000ml 18:25 Drug: NS 0.9% IV 1000 ml IV at 1 bolus Per protocol; 1000 mL bolus Route: IV; Rate: 1 ko1 bolus; Site: left antecubital; 19:09 Follow up: Response: No adverse reaction; IV Status: Completed infusion; IV Intake: bm8 1000ml Disposition Summary: 12/31/23 19:00 Discharge Ordered Notes: Location: Home sb4 Problem: new sb4 Symptoms: have improved sb4 Condition: Stable sb4 Diagnosis - opioid overuse sb4 Followup: sb4 - With: Emergency Department - When: As needed - Reason: Trouble breathing, Worsening of condition Discharge Instructions: - Discharge Summary Sheet sb4 - Warning Signs of Opioid Misuse sb4 Forms: - Thank You Letter sb4 - Patient Portal Instructions sb4 - Leadership Thank You Letter sb4 Signatures: Dispatcher [employer] EDCarrol Mohan RN RN ld1 Kalyani Montoya RN RN ko1 Kavita Nuñez PA-C PA-C sb4 Elías Kang RN bm8 Corrections: (The following items were deleted from the chart) 16:03 15:42 NPO ordered. sb4 sb4
[2024-01-01 04:18] VITALS: BP 161/88; TEMP 97.8; O2SAT 100
== END 2023-12-31 19:29 | disposition home or self-care (01) ==
LOC: ER 15:20
DX: T40.2X1A Poisoning by other opioids, accidental (unintentional), initial encounter (principal); E78.00 Pure hypercholesterolemia, unspecified; I10 Essential (primary) hypertension; G89.29 Other chronic pain; Z11.52 Encounter for screening for COVID-19
CPT/HCPCS: 96361; 93005; 85025; 81001; 80048; 36415; 83735; 85610; 80076; 85730; 84484; 0241U; 80307; 70450; 71045; 96360; 99285; J7030 ×2